=== PATIENT | female | born 1945 | race Caucasian/White ===

== ENCOUNTER 2017-02-03 16:59 | Emergency (ER) | payer MEDICARE ==
[2017-02-03] MEDS ORDERED: IBUPROFEN 400 MG TABLET PO ONE (17:26)
[2017-02-03] MEDS ORDERED: ACETAMINOPHEN 325 MG TABLET PO ONE (17:26)
[2017-02-03 17:58] LABS: BASOPHIL# 0.1 X 10^3uL (0.0-0.1); LYMPHOCYTES# 0.6 X 10^3uL (0.8-3.8)
[2017-02-03 18:03] LABS: ALBUMIN 3.4 g/dL (3.5-5.0); ALKALINE PHOSPHATASE 202 U/L (38-126); ALT 98 U/L (9-52); AST 136 U/L (14-36); BILIRUBIN, DIRECT 1.8 mg/dL (0.0-0.4); BILIRUBIN, TOTAL 3.3 mg/dL (0.2-1.3); BLOOD UREA NITROGEN 17 mg/dL (7-17); CALCIUM 8.2 mg/dL (8.4-10.2); CHLORIDE 101 mmol/L (98-107); CREATININE 0.9 mg/dL (0.5-1.0); EST GLOMERULAR FILTRATION RATE > 60 mL/min; GLUCOSE 122 mg/dL (70-100); LIPASE 37 U/L (23-300); SODIUM 129 mmol/L (137-145); TOTAL PROTEIN 6.5 g/dL (6.3-8.2)
[2017-02-03 18:23] LABS: BASOPHILS 0.6 % (0.0-2.0); EOSINOPHILS 0.1 % (0.0-6.0); HEMATOCRIT 44.5 % (36.0-48.0); HEMOGLOBIN 15.1 g/dL (12.0-16.0); LYMPHOCYTES 5.4 % (20.0-40.0); MEAN CELL VOLUME 90.3 fL (80.0-100.0); MEAN CORPUSCULAR HEMOGLOBIN 30.7 pg (29.0-35.0); MEAN PLATELET VOLUME 9.2 fL (7.4-10.4); MONOCYTES 6.7 % (2.0-10.0); MONOCYTES# 0.7 X 10^3uL (0.2-1.0); NEUTROPHILS# 9.3 X 10^3uL (2.6-6.7); PLATELET COUNT 143 X 10^3uL (130-440); RED BLOOD COUNT 4.93 X 10^6uL (4.20-6.10); WHITE BLOOD COUNT 10.7 X 10^3uL (3.9-10.7)
[2017-02-03 18:33] LABS: NEUTROPHILS 87.2 % (54.0-75.0); RED CELL DISTRIBUTION WIDTH 13.3 % (11.5-14.5)
[2017-02-03] MEDS ORDERED: HYDROCORTISONE 100 MG/2 ML VIAL ONE ×2 (18:59→19:00)
[2017-02-03 19:09] LABS: POTASSIUM 3.4 mmol/L (3.5-5.1)
[2017-02-03 19:26] LABS: CREATINE KINASE 64 U/L (30-135)
[2017-02-03 19:29] LABS: C-REACTIVE PROTEIN > 90.0 mg/L (<10.0)
[2017-02-03 21:21] LABS: URINE RBC NONE SEEN (0-5/hpf)
[2017-02-03 21:28] LABS: URINE APPEARANCE CLOUDY; URINE COLOR AMBER; URINE LEUKOCYTE ESTERASE TRACE (NEGATIVE); URINE NITRITE POSITIVE (NEGATIVE)
[2017-02-03 21:29] LABS: URINE BILIRUBIN 1.0 mg/100ml (2+) (NEGATIVE); URINE BLOOD TRACE (NEGATIVE); URINE GLUCOSE NORMAL (NEGATIVE); URINE KETONE 10mg/dL (1+) (NEGATIVE); URINE PH 5.5 (5-7); URINE PROTEIN 30mg/dL (1+) (NEG - TRACE); URINE UROBILINOGEN 1mg/dL (Normal) (NEG-1mg/dL)
[2017-02-03 21:47] LABS: URINE MUCUS UP TO 50%/lpf (Up to 25%)
[2017-02-03 21:49] LABS: URINE BACTERIA >50 ORGANISMS/hpf (<10/hpf)
--- NOTE | 2017-02-03 22:56 | ER PHYSICIAN DOCUMENTATION ---
Physician Documentation [facility] Name:Carin Smith Age:71 yrs Sex:Female :1945 Arrival Date:02/03/2017 Time:16:59 Bed1 Private MD:Lissa Mackey ED, John Disposition: 02/03/17 21:41 Transfer ordered to [facility]. Diagnosis are Urosepsis, Dehydration, Adrenal Insufficiency, Hypotension, Hyponatremia. - Reason for transfer: Specialty. - Accepting physician is Dr. Haynes. - Condition is Fair. - Problem is new. - Symptoms are unchanged. COBRA Form completed? Yes Transfer - Mode of Transportation Ambulance - Notes: For the weekend, up your dose of steroids to 30mg twice a day. Follow up with Dr. Mackey on Monday morning. HPI: 02/03 20:18 This 71 yrs old Female presents to ER with complaints of Fever. jm 20:18 This 71 yrs old Female presents to ER with complaints of Fever. jm 20:18 The patient reports fever, not measured (subjective). Onset: The symptom(s)/episode jm began/occurred today. Modifying factors: there are no obvious modifying factors. Associated signs and symptoms: Pertinent positives: arthralgias, backache. Severity of symptoms: in the emergency department the symptoms are unchanged. The patient has not experienced similar symptoms in the past. The patient has been recently seen by a physician: the patient's primary care provider, Dr. Mackey, who did a flu swab and it was negative. It was at the end of clinic, so she was sent to the ER for evaluation. Pt c/po mostly of back pain and fatigue. She denies cough or SOB. . Historical: - Allergies: Compazine; Gluten Protein; Dairy product; - Home Meds: 1. Synthroid Oral 2. Hydrocortisone Oral 3. budesonide oral 4. Acidophilus Oral 5. echinacea oral 6. boswellia 7. Imodium Oral 8. melatonin Oral 9. ubiquinol 10. cranberry 11. tylenol 12. Famotidine Oral 13. Tomeka Oral 14. potassium chloride 15. reclast 16. singular 17. estriol - PMHx: adrenal insufficency; HYPOTHYROIDISM; ischemic heart disease; OSTEOPOROSIS; FIBROMYALGIA; OSTEOARTHRITIS; colitis; SINUSITIS; GLAUCOMA; sleep disorder; SLEEP APNEA; PTSD; hypopotassemia; hyperlipidemia; adrenal insufficiency; autoimmune hypothyroidism; chronic lymphocytic thyroiditis; monika's thyroiditis; vaginitis; - PSHx: TUBAL LIGATION; section; Tonsillectomy; - Tetanus: unknown. - Ebola Screening: : Patient negative for fever greater than or equal to 101.5 degrees Fahrenheit, and additional compatible Ebola Virus Disease symptoms. Patient denies exposure to infectious person. Patient denies travel to an Ebola-affected area in the 21 days before illness onset. No symptoms or risks identified at this time. . - Immunization history: Pneumococcal vaccine is not up to date, Patient has never been vaccinated, Flu Vaccine None. - Social history: Smoking status: Patient states was never smoker of tobacco. Patient/guardian denies using alcohol, marijuana. ROS: 20:20 Constitutional: Positive for body aches, chills, fatigue, fever, malaise. jm 20:20 ENT: Negative for sinus congestion, sinus pain, sore throat. 20:20 Neck: Negative for stiffness. 20:20 Cardiovascular: Negative for chest pain. 20:20 Respiratory: Negative for cough, dyspnea on exertion, shortness of breath. 20:20 Abdomen/GI: Negative for abdominal pain, nausea, vomiting, diarrhea. 20:20 Back: Positive for pain at rest, pain with movement. 20:20 : Positive for foul smelling urine. 20:20 Skin: Negative for rash. 20:20 Neuro: Positive for weakness, Negative for dizziness, headache. 20:20 Psych: Negative for anxiety, depression. 20:20 Endocrine: Negative for weight gain, weight loss. Exam: 20:21 Constitutional: The patient appears alert, awake, obese. jm 20:21 Head/face: Exam is negative for swelling, tenderness. 20:21 ENT: Mouth: Oral mucosa: dry, Posterior pharynx: is normal. 20:21 Neck: Thyroid: appears normal, Trachea: is midline with no obvious abnormalities. 20:21 Cardiovascular: Rate: normal, Rhythm: regular. 20:21 Respiratory: Respirations: normal, Breath sounds: are normal. 20:21 Abdomen/GI: Bowel sounds: normal, Palpation: abdomen is soft and non-tender. 20:21 Back: CVA tenderness, that is mild, is noted bilaterally, vertebral tenderness, is not appreciated. 20:21 : CVA tenderness, that is mild, Bladder: tenderness, that is mild. 20:21 Musculoskeletal/extremity: DVT Exam: No signs of deep vein thrombosis. Calves: are non-tender, have equal circumference. 20:21 Skin: Appearance: Color: pink, Temperature: normal temperature. 20:21 Neuro: Mentation: is normal, Memory: is normal. 20:21 Psych: Behavior/mood is pleasant, cooperative, Affect is calm. Vital Signs: 17:10 BP 96 / 54; Pulse 77; Resp 22; Temp 99.1; Pulse Ox 82% on R/A; Weight 72.57 kg; Height sj 5 ft. 0 in. (152.40 cm); Pain 7/10; 17:40 BP 117 / 55; Pulse 74; Pulse Ox 91% on 2 lpm NC; sj 18:45 BP 87 / 46; Pulse 68; Pulse Ox 94% on 2 lpm NC; sj 19:52 BP 93 / 46; Pulse 67; Pulse Ox 93% on 2 lpm NC; sj 20:36 BP 101 / 46; Pulse 68; Temp 97.8(O); Pulse Ox 85% on R/A; Pain 5/10; sj 17:10 Body Mass Index 31.25 (72.57 kg, 152.40 cm) sj MDM: 17:33 Patient medically screened. cd 20:22 Differential diagnosis: viral Infection, bacterial infection, URI, UTI. Data reviewed: jm vital signs, nurses notes, old medical records, lab test result(s), radiologic studies, and as a result, I will admit patient. Counseling: I had a detailed discussion with the patient and/or guardian regarding: the historical points, exam findings, and any diagnostic results supporting the discharge/admit diagnosis, lab results, radiology results, the need for further work-up and treatment in the hospital. Medication response: The patient's symptoms have resolved. Physician consultation: Louie Stout MD regarding admission, and will see patient tomorrow. Admission orders: after a detailed discussion of the patient's condition and case, the admit orders are written by me. 20:44 ED course: Pt w nitrite + UTI. Pt given Rocephin. BP's have been low, but I feel this jm is due to her renal insufficiency under stress. Hydrocortisone was given for this. Pt also hypoxic, but this has occurred in the past per Dr's notes. Dr. Meza did a bedside US of the RUQ after her LFTs were bumped. This showed stones, but she has no RUQ pain. Will admit for improved BP's and urosepsis. . 22:00 ED course: Dr. Stout has seen and evaluated pt. He spoke w pt's PCP, Dr. Narendra tierney and they agree that the elevated LFTs w a positive bedside US that showed stones, does not sit well with them. Our surgical coverage is 2 hours away over this weekend, so they decided that I should make the call to transfer the pt. Dr. Haynes at [facility] gladly accepted the pt. . 02/03 18:21 Order name: BASIC METABOLIC PANEL; Complete Time: 19:17 EDMS 02/03 18:24 Interpretation: Normal Except: SODIUM 129; POTASSIUM 3.4; CALCIUM 8.2; Hypokalemia, cd Hyponatremia, Hypocalcemia. 02/03 18:21 Order name: HEPATIC PANEL; Complete Time: 19:17 EDMS 02/03 18:24 Interpretation: Abnormal: ALT 98; ALKALINE PHOSPHATASE 202; AST 136; BILIRUBIN, TOTAL cd 3.3; BILIRUBIN, DIRECT 1.8. 02/03 18:21 Order name: LIPASE; Complete Time: 19:17 EDMS 02/03 18:24 Interpretation: Normal. 02/03 18:30 Order name: LACTATE; Complete Time: 18:35 EDMS 02/03 18:34 Interpretation: Normal. 02/03 18:32 Order name: INFLUENZA A/B; Complete Time: 18:35 EDMS 02/03 18:34 Interpretation: Normal. 02/03 18:34 Order name: CBC AUTO DIF, MDIF/RMOR IF IND; Complete Time: 19:17 EDMS 02/03 19:30 Order name: CREATINE KINASE; Complete Time: 20:44 EDMS 02/03 19:30 Order name: C-REACTIVE PROTEIN; Complete Time: 20:44 EDMS 02/03 21:52 Order name: UA W/ MICRO -CULTURE IF IND; Complete Time: 21:55 EDMS 02/03 17:36 Order name: I & O; Complete Time: 21:36 02/03 17:36 Order name: NPO; Complete Time: 21:36 02/03 17:36 Order name: Oxygen; Complete Time: 21:36 cd 02/03 17:36 Order name: Place Patient On Monitor; Complete Time: 21:36 cd 02/03 17:36 Order name: Pulse Ox Continuous; Complete Time: 21:36 cd 02/03 17:36 Order name: Accucheck; Complete Time: 21:36 cd 02/03 17:38 Order name: Iv Saline Lock; Complete Time: 21:36 cd Dispensed Medications: 17:20 Drug: Acetaminophen 650 mg; Route: PO; sj 21:36 Follow up: Response: Marked relief of symptoms sj 17:20 Drug: Ibuprofen 400 mg; Route: PO; sj 21:37 Follow up: Response: Marked relief of symptoms sj 17:30 Drug: NS 0.9% 1000 ml; Route: IV; Rate: bolus; Site: right forearm; sj 21:36 Follow up: IV Status: Completed infusion; IV Intake: 1000ml sj 17:40 Drug: NS 0.9% 1000 ml; Route: IV; Rate: 250 ml/hr; Site: right forearm; sj 21:34 Follow up: Urine output 250 ml; Response: Blood pressure is elevated sj 18:54 CANCELLED (Physician Discretion): Zosyn 3.375 grams IVPB once cd 19:40 Drug: NS 0.9% 500 ml; Route: IV; Rate: bolus; Site: right forearm; sj 21:37 Follow up: IV Status: Completed infusion; IV Intake: 1000ml 20:20 Drug: Rocephin 1 grams; Route: IVPB; Site: right forearm; sj 21:35 Follow up: Response: No adverse reaction sj 21:46 Follow up: IV Status: Completed infusion; IV Intake: 100ml Point of Care Testing: Urine Dip: 21:18 pH: 5.5; ; Specific [place]: 1.025; Ketones: Trace; Glucose: Negative; Protein: sj Positive (++); Leukocytes: Trace; Nitrite: Positive (++) ; Blood: Hemolyzed Trace; Bilirubin: Moderate (++) ; Urobilinogen: Moderate Signatures: Juan Meza MD MD cd Meyer, John, MD MD jm Janzen, Heather Rader, Magi guadalupe
--- NOTE | 2017-02-03 22:56 | ER NURSING DOCUMENTATION ---
Nurse's Notes [facility] Name:Carin Smith Age:71 yrs Sex:Female :1945 Arrival Date:02/03/2017 Time:16:59 Bed1 Private MD:Lissa Mackey Diagnosis:Urosepsis;Dehydration;Adrenal Insufficiency;Hypotension;Hyponatremia Presentation: 02/03 17:03 Acuity: MARICRUZ 3 tg 20:48 Presenting complaint: Patient states: fever and low back ache today. Pain is mostly in sj buttocks. Seen in Dr. Mackey's office and given tylenol. Transition of care: patient was received from another setting of care (ambulatory primary care physician practice). Notified ED Physician of patient's arrival and CC Dr. Meza notified. 20:48 Method Of Arrival: Private Vehicle Triage Assessment: 21:07 General: Appears ill, Behavior is cooperative, drowsy, flat. Pain: Complains of pain in sj bilat upper buttocks Pain does not radiate. Neuro: Level of Consciousness is awake, lethargic, obeys commands, Oriented to person, place, time, event. Cardiovascular: Capillary refill < 3 seconds Heart tones S1 S2 Respiratory: Respiratory effort is even, unlabored, relaxed. : Denies burning with urination, urinary frequency. Historical: - Allergies: Compazine; Gluten Protein; Dairy product; - Home Meds: 1. Synthroid Oral 2. Hydrocortisone Oral 3. budesonide oral 4. Acidophilus Oral 5. echinacea oral 6. boswellia 7. Imodium Oral 8. melatonin Oral 9. ubiquinol 10. cranberry 11. tylenol 12. Famotidine Oral 13. Tomeka Oral 14. potassium chloride 15. reclast 16. singular 17. estriol - PMHx: adrenal insufficency; HYPOTHYROIDISM; ischemic heart disease; OSTEOPOROSIS; FIBROMYALGIA; OSTEOARTHRITIS; colitis; SINUSITIS; GLAUCOMA; sleep disorder; SLEEP APNEA; PTSD; hypopotassemia; hyperlipidemia; adrenal insufficiency; autoimmune hypothyroidism; chronic lymphocytic thyroiditis; monika's thyroiditis; vaginitis; - PSHx: TUBAL LIGATION; section; Tonsillectomy; - Tetanus: unknown. - Ebola Screening: : Patient negative for fever greater than or equal to 101.5 degrees Fahrenheit, and additional compatible Ebola Virus Disease symptoms. Patient denies exposure to infectious person. Patient denies travel to an Ebola-affected area in the 21 days before illness onset. No symptoms or risks identified at this time. . - Immunization history: Pneumococcal vaccine is not up to date, Patient has never been vaccinated, Flu Vaccine None. - Social history: Smoking status: Patient states was never smoker of tobacco. Patient/guardian denies using alcohol, marijuana. Screenin:20 Infectious Disease Risk None. Abuse screen: Denies threats or abuse. Denies injuries sj from another. Nutritional screening: No deficits noted. Assessment: 21:19 See Triage Assessment done by same RN. sj 22:26 Respiratory: Breath sounds are clear. Vital Signs: 17:10 BP 96 / 54; Pulse 77; Resp 22; Temp 99.1; Pulse Ox 82% on R/A; Weight 72.57 kg; Height sj 5 ft. 0 in. (152.40 cm); Pain 7/10; 17:40 BP 117 / 55; Pulse 74; Pulse Ox 91% on 2 lpm NC; sj 18:45 BP 87 / 46; Pulse 68; Pulse Ox 94% on 2 lpm NC; sj 19:52 BP 93 / 46; Pulse 67; Pulse Ox 93% on 2 lpm NC; sj 20:36 BP 101 / 46; Pulse 68; Temp 97.8(O); Pulse Ox 85% on R/A; Pain 5/10; sj 17:10 Body Mass Index 31.25 (72.57 kg, 152.40 cm) ED Course: 17:00 Patient arrived in ED. ama 17:01 Lissa Mackey MD is Private Physician. ama 17:04 Triage completed. tg 17:33 Juan Meza MD is Attending Physician. cd 17:45 Port Xray Completed. hz 18:28 Magi Rader is Primary Nurse. lb 18:30 Labs drawn. (by ED staff). Urine collected. Clean catch specimen. Flu Swab done. sj 18:43 Lissa Mackey MD is Referral Physician. cd 19:37 Lissa Mackey MD is Referral Physician. jm 20:17 Attending Physician role handed off by Juan Meza MD jm 20:17 Dominick Simon MD is Attending Physician. jm 20:47 Louie Stout MD is Admitting Physician. jm 21:20 Inserted peripheral IV: 20 gauge in right forearm and blood collected. Oxygen Oxygen sj administration via nasal cannula @ 2L/min. 21:20 Valuables Given to family. Patient has correct armband on for positive identification. sj Bed in low position. Call light in reach. Side rails up X2. Lights dimmed. Warm blanket given. 21:43 First set of blood cultures drawn Second set of blood cultures drawn. sj Administered Medications: 17:20 Drug: Acetaminophen 650 mg; Route: PO; sj 21:36 Follow up: Response: Marked relief of symptoms sj 17:20 Drug: Ibuprofen 400 mg; Route: PO; sj 21:37 Follow up: Response: Marked relief of symptoms sj 17:30 Drug: NS 0.9% 1000 ml; Route: IV; Rate: bolus; Site: right forearm; sj 21:36 Follow up: IV Status: Completed infusion; IV Intake: 1000ml sj 17:40 Drug: NS 0.9% 1000 ml; Route: IV; Rate: 250 ml/hr; Site: right forearm; sj 21:34 Follow up: Urine output 250 ml; Response: Blood pressure is elevated sj 18:54 CANCELLED (Physician Discretion): Zosyn 3.375 grams IVPB once cd 19:40 Drug: NS 0.9% 500 ml; Route: IV; Rate: bolus; Site: right forearm; sj 21:37 Follow up: IV Status: Completed infusion; IV Intake: 1000ml 20:20 Drug: Rocephin 1 grams; Route: IVPB; Site: right forearm; sj 21:35 Follow up: Response: No adverse reaction sj 21:46 Follow up: IV Status: Completed infusion; IV Intake: 100ml sj Point of Care Testing: Urine Dip: 21:18 pH: 5.5; ; Specific [place]: 1.025; Ketones: Trace; Glucose: Negative; Protein: sj Positive (++); Leukocytes: Trace; Nitrite: Positive (++) ; Blood: Hemolyzed Trace; Bilirubin: Moderate (++) ; Urobilinogen: Moderate Intake: 21:36 IV: 1000ml; Total: 1000ml. sj 21:37 IV: 1000ml; Total: 2000ml. sj 21:45 PO: 400ml; IV: 2100ml; Total: 4500ml. sj 21:46 IV: 100ml; Total: 4600ml. sj Output: 21:34 Urine: 250ml; Total: 250ml. sj 21:45 Urine: 250ml (Voided); Total: 500ml. Outcome: 18:44 Discharge ordered by . kehinde 19:37 Discharge ordered by . kelsy 20:47 Decision to Admit by Provider. kelsy 21:41 ER care complete, transfer ordered by . kelsy 22:22 Transferred: Patient will be transferred to: [facility]. Facility sj Acceptance Time: February 03, 2017 at 21:55 Patient will be transported by: [facility] [place] [facility] ground. Report called to: Yaya RN Nurse and Physician Charting and Notes were sent to Accepting Facility. All tests and/or procedures with results, if applicable, were sent to accepting facility. 22:22 Condition: stable 22:22 Instructed on need for transfer 22:24 Transferred: sj 22:25 Transferred: Patient's face sheet was faxed to accepting facility. Face Sheet included patient's name, address, age, gender, contact information and insurance information. 22:55 Patient left the ED. lb Signatures: Jasen Khan RN RN Juan Busby MD MD cd Meyer, John, MD MD jm Averdick, Andrew, Taras Reg carol Hutton, Magi Mark Heather
--- NOTE | 2017-02-06 14:28 | RADIOLOGY REPORT ---
A limited single portable view of the chest is compared with prior film dated . There has been no change. The heart, vessels and lungs are stable and unremarkable. No infiltrate, fluid or pneumothorax is seen. IMPRESSION: Stable, unremarkable limited single portable view of the chest. MTDD
== END 2017-02-03 22:56 | disposition short-term general hospital (02) ==
LOC: ER 16:59
DX: N39.0 Urinary tract infection, site not specified (principal); B96.20 Unspecified Escherichia coli [E. coli] as the cause of diseases classified elsewhere; E86.0 Dehydration; E27.49 Other adrenocortical insufficiency; I95.9 Hypotension, unspecified; E87.1 Hypo-osmolality and hyponatremia; R78.81 Bacteremia; B95.61 Methicillin susceptible Staphylococcus aureus infection as the cause of diseases classified elsewhere; R53.1 Weakness; M79.1 Myalgia; R53.83 Other fatigue; R79.89 Other specified abnormal findings of blood chemistry; Z79.899 Other long term (current) drug therapy; Z74.3 Need for continuous supervision
CPT/HCPCS: 71010; 80048; 80076; 81001; 82550; 83605; 83690; 85025; 86140; 87040; 87077; 87086; 87186; 87449; 96361; 96365; 99285; A0425; A0427

== ENCOUNTER 2017-03-07 14:44 | Emergency (ER) | payer MEDICARE ==
[2017-03-07 15:39] LABS: BASOPHILS 0.1 % (0.0-2.0); EOSINOPHILS 2.4 % (0.0-6.0); EOSINOPHILS# 0.2 X 10^3uL (0.0-0.4); HEMATOCRIT 42.6 % (36.0-48.0); HEMOGLOBIN 14.8 g/dL (12.0-16.0); LYMPHOCYTES 11.3 % (20.0-40.0); MEAN CELL VOLUME 89.8 fL (80.0-100.0); MEAN CORPUS. HGB CONCENTRATION 34.7 g/dL (32.0-36.0); MEAN CORPUSCULAR HEMOGLOBIN 31.1 pg (29.0-35.0); MEAN PLATELET VOLUME 8.8 fL (7.4-10.4); MONOCYTES 7.7 % (2.0-10.0); MONOCYTES# 0.7 X 10^3uL (0.2-1.0); NEUTROPHILS 78.5 % (54.0-75.0); NEUTROPHILS# 7.1 X 10^3uL (2.6-6.7); PLATELET COUNT 264 X 10^3uL (130-440); RED BLOOD COUNT 4.74 X 10^6uL (4.20-6.10); RED CELL DISTRIBUTION WIDTH 13.4 % (11.5-14.5)
[2017-03-07] MEDS ORDERED: MORPHINE SULFATE 2 MG/ML SYR ONE ×2 (15:47→16:29)
[2017-03-07 15:48] LABS: BLOOD UREA NITROGEN 19 mg/dL (7-17); C-REACTIVE PROTEIN 27.2 mg/L (<10.0); CALCIUM 9.1 mg/dL (8.4-10.2); CHLORIDE 97 mmol/L (98-107); CREATININE 0.8 mg/dL (0.5-1.0); EST GLOMERULAR FILTRATION RATE > 60 mL/min; GLUCOSE 97 mg/dL (70-100); SODIUM 133 mmol/L (137-145)
[2017-03-07] MEDS ORDERED: BACITRACIN 1 APP/PKT PKT TOPICAL ONE (16:01)
--- NOTE | 2017-03-07 17:34 | ER NURSING DOCUMENTATION ---
Nurse's Notes [facility] Name:Carin Smith Age:71 yrs Sex:Female :1945 Arrival Date:03/07/2017 Time:14:44 Bed4 Private MD:Lissa Mackey Diagnosis:Osteomyelitis Acute, Unspecified Site Presentation: 03/07 14:52 Acuity: MARICRUZ 2 ma 14:55 Presenting complaint: Patient states: Pt here for rule out Sepsis Hx of Staph infection ma to lumbar spine. Transition of care: Home. 14:55 Method Of Arrival: Private Vehicle ma Triage Assessment: 15:19 General: Appears uncomfortable, Behavior is anxious. Pain: Complains of pain in lumbar lp area, sacrum and left low back. EENT: Neuro: No deficits noted. Cardiovascular: No deficits noted. Respiratory: No deficits noted. GI: No deficits noted. : No deficits noted. Derm: No deficits noted. Musculoskeletal: Circulation, motion, and sensation intact Capillary refill Range of motion limited in left hip. Historical: - Allergies: Compazine; Penicillins; - PMHx: Hyponatremia (February 03, 2017); Hypotension (February 03, 2017); Adrenal Insufficiency (February 03, 2017); Dehydration (February 03, 2017); Urosepsis (February 03, 2017); - PSHx: TUBAL LIGATION; section; TONSILLECTOMY; - Tetanus: unknown. - Ebola Screening: : No symptoms or risks identified at this time. . - Immunization history: Unable to Obtain. - Social history: Smoking status: Patient states was never smoker of tobacco. Screenin:21 Infectious Disease Risk None. Abuse screen: Denies threats or abuse. Denies injuries lp from another. Nutritional screening: No deficits noted. Assessment: 15:21 See Triage Assessment done by same RN. lp Vital Signs: 14:50 BP 138 / 62; Pulse 75; Resp 16; Pulse Ox 93% on R/A; lp 15:20 BP 119 / 62; Pulse 70; Resp 16; Temp 98.5(O); Pulse Ox 98% on R/A; Weight 84.82 kg; lp Height 60 in. (152.40 cm); Pain 8/10; 16:00 BP 119 / 57; Pulse 71; Resp 16; Pulse Ox 95% on R/A; lp 17:02 BP 114 / 63; Pulse 74; Resp 16; Pulse Ox 92% on R/A; lp 17:15 Pain 2/10; lp 15:20 Body Mass Index 36.52 (84.82 kg, 152.40 cm) lp ED Course: 14:45 Patient arrived in ED. ds 14:45 Lissa Mackey MD is Private Physician. ds 14:52 Triage completed. evelina 15:15 Dominick Simon MD is Attending Physician. kelsy 15:15 Inserted peripheral IV: 20 gauge in right antecubital area. lp 15:18 Roshni Alejandre, RN is Primary Nurse. lp 15:21 Valuables Remains with patient Patient has correct armband on for positive lp identification. Placed in gown. Bed in low position. Call light in reach. 15:[address] Simon notified. lp 15:53 Dressings: Bacitracin and gauze with kerlix to R FA skin tear. lp Administered Medications: 15:42 Drug: morphine 2 mg; Route: IVP; Infused Over: 2 mins; Site: right antecubital; lp 16:25 Follow up: Response: Pain is unchanged, physician notified lp 15:53 Drug: Bacitracin Ointment (500 unit/g) 1 application; Route: Topical; Site: right lp forearm; 16:29 Follow up: Response: No adverse reaction; No change in condition lp 16:26 Drug: morphine 2 mg; Route: IVP; Infused Over: 2 mins; Site: right antecubital; lp 17:15 Follow up: Response: Pain is decreased lp Outcome: 16:57 Discharge ordered by . 16:58 Discharged to home ambulatory. lp 16:58 Condition: unchanged 16:58 Instructed on discharge instructions, follow up and referral plans. 17:34 Patient left the ED. lp Signatures: Emelyn Bauer RN RN ma Pavlish, Lena, JUSTIN ANDERSON lp Srot, Skye, Reg Reg Dominick Soni MD MD jm
--- NOTE | 2017-03-07 17:35 | ER PHYSICIAN DOCUMENTATION ---
Physician Documentation [facility] Name:Carin Smith Age:71 yrs Sex:Female :1945 Arrival Date:03/07/2017 Time:14:44 Bed4 Private MD:Lissa Mackey ED, John Disposition: 03/07/17 16:57 Discharged to Home/Self Care. Impression: Osteomyelitis Acute, Unspecified Site. - Condition is Good. - Prescriptions for oxycodone 5 mg Oral tablet - take 0.5 tablet by ORAL route every 2 hours; 20 tablet. - Medical Reconciliation form form. - Follow up: Private Physician; When: ; Reason: Continuance of care. - Problem is new. - Symptoms have improved. HPI: 03/07 16:01 This 71 yrs old Female presents to ER via Private Vehicle with complaints of jm Pain. 16:01 The patient presents with pain that is chronic. The symptoms are located in the low jm back. Onset: The symptoms/episode began/occurred 3 day(s) ago. The pain radiates down the patient's left lower extremity. Associated signs and symptoms: Pertinent positives: weakness, malaise and difficulty walking , Pertinent negatives: urinary retention. The problem was sustained discitis or vertebral osteomyelitis. . Modifying factors: the patient symptoms are aggravated by bending, movement. Severity of symptoms: in the emergency department the symptoms are unchanged. The patient has experienced a previous episode. The patient has been recently seen by a physician: Dr. Dr. Thomas of ID. . Pt here to get MRI. Pt was sent in by her ID doctor due to thought that her infection is getting worse. Pt is currently on week 3 of [facility] for this osteomyelitis. Pt called to tell her ID doctor, Dr. Thomas, she was doing worse. He recommended that she come into get an MRI. She wanted to do this as an outpt, but here was no order. She waited until now. Pt can barely walk or do any ADLs. . Historical: - Allergies: Compazine; Penicillins; - PMHx: Hyponatremia (February 03, 2017); Hypotension (February 03, 2017); Adrenal Insufficiency (February 03, 2017); Dehydration (February 03, 2017); Urosepsis (February 03, 2017); - PSHx: TUBAL LIGATION; section; TONSILLECTOMY; - Tetanus: unknown. - Ebola Screening: : No symptoms or risks identified at this time. . - Immunization history: Unable to Obtain. - Social history: Smoking status: Patient states was never smoker of tobacco. ROS: 16:17 Constitutional: Negative for fever. jm 16:17 ENT: Negative for 16:19 Neck: Negative for stiffness, swelling. jm 16:19 Cardiovascular: Negative for chest pain, palpitations. 16:19 Respiratory: Negative for cough, shortness of breath. 16:19 Abdomen/GI: Negative for abdominal pain, nausea, vomiting, diarrhea. 16:19 Back: Positive for pain with movement, radiated pain. 16:19 : Negative for difficulty urinating, bladder incontinence. 17:06 MS/extremity: Positive for paresthesias. 17:06 Neuro: Positive for numbness, tingling, weakness. 17:06 Psych: Negative for insomnia, suicidal ideation. 17:06 All other systems are negative. Exam: 17:06 Constitutional: The patient appears in no acute distress, alert, awake. 17:06 Eyes: Periorbital structures: appear normal, Extraocular movements: intact throughout. 17:06 ENT: Nose: is normal, Mouth: is normal. 17:06 Neck: Thyroid: appears normal, Trachea: is midline with no obvious abnormalities. 17:06 Cardiovascular: Rate: normal, Rhythm: regular. 17:06 Respiratory: Respirations: normal, Breath sounds: are normal. 17:06 Abdomen/GI: Bowel sounds: normal, Palpation: abdomen is soft and non-tender. 17:06 Back: CVA tenderness, is absent, vertebral tenderness, is not appreciated. 17:06 : CVA tenderness, is absent, Bladder: is normal. 17:06 Musculoskeletal/extremity: Pulses: the left leg Tingling of extremity. decreased sensation. 17:06 Neuro: Motor: strength is 5/5 in the right leg and left leg, Sensation: tingling, that is moderate, of the left leg. 17:06 Psych: Behavior/mood is pleasant, cooperative, Affect is calm. Vital Signs: 14:50 BP 138 / 62; Pulse 75; Resp 16; Pulse Ox 93% on R/A; lp 15:20 BP 119 / 62; Pulse 70; Resp 16; Temp 98.5(O); Pulse Ox 98% on R/A; Weight 84.82 kg; lp Height 60 in. (152.40 cm); Pain 8/10; 16:00 BP 119 / 57; Pulse 71; Resp 16; Pulse Ox 95% on R/A; lp 17:02 BP 114 / 63; Pulse 74; Resp 16; Pulse Ox 92% on R/A; lp 17:15 Pain 2/10; lp 15:20 Body Mass Index 36.52 (84.82 kg, 152.40 cm) lp MDM: 15:15 Patient medically screened. 17:09 Differential diagnosis: Osteomyelitis. Data reviewed: vital signs, nurses notes, old medical records, lab test result(s), and as a result, I will initiate a consult, from a ID. Counseling: I had a detailed discussion with the patient and/or guardian regarding: the historical points, exam findings, and any diagnostic results supporting the discharge/admit diagnosis, lab results, the need for further work-up and treatment in the hospital, risk of leaving the Emergency Department, without knowing results of the studies ordered or initiated. Medication response: The patient's symptoms have improved, Physician consultation: Dr. Garcia regarding patient's condition, would like further tests performed, MRI. ED course: Pt waited too long to come to the ER for her MRI. There is a patient on the table as of 3:30 w an 75 minute study occurring. This pt needs an MRI w and w/o contrast which will take 45 minutes and our it help desk technician needs to go home at 5pm to pick up attendant her grandchildren. Pt was offered transfer to other hospital for this emergency. She refused. She can barely walk and is a fall risk, so she was offered admission here for pain control w MRI in the AM. She refused, stating that she has a that is much sicker than she is. She also is not a fan of our beds and would rather sleep on her sleep number bed. Pt states she will try tomorrow to wait for the preauthorizations from insurance, but she may have to come back to the ER. Certainly this represents an emergency w new sensory deficits in her leg. . ED course: I cannot convince her to stay and her reasons are sound. I will relay her medical info to Dr. Medina, who is the ER doctor tomorrow. . 03/07 15:42 Order name: CBC AUTO DIF, MDIF/RMOR IF IND; Complete Time: 15:51 EDMS 03/07 15:50 Order name: BASIC METABOLIC PANEL; Complete Time: 15:51 EDMS 03/07 15:50 Order name: C-REACTIVE PROTEIN; Complete Time: 15:51 EDMS Dispensed Medications: 15:42 Drug: morphine 2 mg; Route: IVP; Infused Over: 2 mins; Site: right antecubital; lp 16:25 Follow up: Response: Pain is unchanged, physician notified lp 15:53 Drug: Bacitracin Ointment (500 unit/g) 1 application; Route: Topical; Site: right lp forearm; 16:29 Follow up: Response: No adverse reaction; No change in condition lp 16:26 Drug: morphine 2 mg; Route: IVP; Infused Over: 2 mins; Site: right antecubital; lp 17:15 Follow up: Response: Pain is decreased lp Signatures: Emelyn Bauer RN RN ma Pavlish, Lena, RN RN lp Meyer, John, MD MD
== END 2017-03-07 17:34 | disposition home or self-care (01) ==
LOC: ER 14:44
DX: M86.18 Other acute osteomyelitis, other site (principal); R20.2 Paresthesia of skin; R53.1 Weakness
CPT/HCPCS: 80048; 85025; 86140; 87040; 96374; 96376; 99283; 99285; J2270

== ENCOUNTER 2017-03-08 08:40 | Emergency (ER) | payer MEDICARE ==
--- NOTE | 2017-03-08 10:42 | MRI REPORT ---
HISTORY: Low back pain with left lower extremity radiculopathy requiring evaluation for infection. COMPARISON: None TECHNIQUE: Multisequence, multiplanar MR images of the lumbar spine before and after the intravenous administrat ion of 15 cc Magnevist contrast. FINDINGS: There is moderate accentuation of the normal lumbar lordosis. There is 4 mm L2-L3 retrolisthesis. The re is no acute vertebral body fracture. There is severe L2-L3, moderate-severe L3-L4 and moderate-sev ere L4-L5 degenerative disc disease along with mild L5-S1 disc desiccation. There is an annular fissu re in the posterior L5-S1 disc. There is enhancing edema throughout the L4 and L5 vertebral bodies. T here is fluid in the L4-L5 intervertebral disc. There is mild enhancement in the posterior L4-L5 inte rvertebral disc. There is edema in the surrounding soft tissues, more pronounced on the left, without definitive abscess. The conus medullaris is normal in position, terminating at the L2 level. T12-L1 and L1-L2: There is minimal bilateral facet arthropathy at both these levels. L2-L3: There is 4 mm retrolisthesis, mild diffuse disc bulging, thickening of ligamentum flavum and m ild bilateral facet arthropathy resulting in mild central canal narrowing and mild bilateral neural f oraminal narrowing. L3-L4: There is diffuse disc bulging, thickening of ligamentum flavum and moderate right and mild lef t facet arthropathy resulting in severe central canal stenosis and mild bilateral neural foraminal na rrowing. L4-L5: There is diffuse disc bulging, thickening of ligamentum flavum and moderate bilateral facet ar thropathy resulting in moderate-severe central canal stenosis and moderate bilateral neural foraminal narrowing including abutment of the bilateral exiting L4 nerve roots. L5-S1: There is diffuse disc bulging, thickening of ligamentum flavum and mild-moderate bilateral fac et arthropathy resulting in mild-moderate bilateral neural foraminal narrowing including slight abutm ent of the bilateral exiting L5 nerve roots, more pronounced on the left. IMPRESSION: 1. L4-L5 discitis/osteomyelitis without obvious abscess. 2. Multilevel severe degenerative disc disease, disc bulging, severe L3-L4 and moderate-severe L4-L5 central canal stenosis and abutment of the exiting left L4 nerve root. Final Electronic Signature: This report was electronically signed by Milton Solis MD on 017 10:40 AM. law /
--- NOTE | 2017-03-08 11:43 | ER PHYSICIAN DOCUMENTATION ---
Physician Documentation [facility] Name:Carin Smith Age:71 yrs Sex:Female :1945 Arrival Date:03/08/2017 Time:08:40 Bed1 Private MD:Lissa Mackey ED, Tom Disposition: 03/08 16:28 Chart complete. tl1 Disposition: 03/08/17 11:19 Discharged to Home/Self Care. Impression: Osteomyelitis. - Condition is Good. - Medical Reconciliation form form. - Follow up: Private Physician; When: Tomorrow; Reason: Recheck today's complaints. - Problem is new. - Symptoms have improved. - Notes: WE CANNOT SAY, NOW, IF YOUR OSTEOMYELITIS HAS CHANGED RADIOGRAPHICALLY. MAKE SURE YOU TAKE YOUR MRI DISC AND THE REPORT TO YOUR APPOINTMENT WITH DR SARAH. RETURN HERE FOR HIGH FEVER OR IF WORSE IN ANY WAY. HPI: 09:00 This 71 yrs old Female presents to ER via Private Vehicle with complaints of tl1 Back Pain. 09:00 The patient presents with pain that is acute. SHE was here yesterday in the ED and was tl1 unable to get an MRI for her worsening low back pain related to bacterial discitis (MSSA). She did not want to be admitted and returned this AM for a Lumbar MRI w/ and w/o contrast. See Dr Simon's note from yesterday for further details.. Historical: - Allergies: Compazine; PENICILLINS; - Home Meds: 1. pt staes they are in [facility] but that she does not know them. - PSHx: TUBAL LIGATION; section; TONSILLECTOMY; - Tetanus: unknown will f/u with PCP. - Ebola Screening: : Patient denies exposure to infectious person. Patient denies travel to an Ebola-affected area in the 21 days before illness onset. . - Immunization history: Pneumococcal vaccine status is unknown. - Social history: Smoking status: Patient states was never smoker of tobacco. Patient/guardian denies using alcohol, marijuana. ROS: 09:27 Back: Positive for pain at rest, pain with movement, of the lumbar area. tl1 09:28 All other systems are negative. tl1 Exam: 09:30 Constitutional: The patient appears alert, awake, well developed, well hydrated, well tl1 groomed, well nourished, uncomfortable. 09:30 Head/face: Exam is negative for acute changes. 09:30 Neck: ROM/movement: is normal. 09:30 Cardiovascular: Rate: normal. 09:30 Respiratory: Respirations: normal. 09:30 Back: pain, that is moderate, of the lumbar area, ROM is not tested. 09:30 Neuro: Sensation: not tested, Gait: not tested. Vital Signs: 07:40 BP 110 / 63; Pulse 69; Resp 18; Temp 97.9; Pulse Ox 92% on R/A; Pain 6/10; st MDM: 09:24 Patient medically screened. tl1 09:30 Differential diagnosis: Osteoarthritis osteomyelitis, discitis, abscess, fracture, tl1 spinal stenosis. Data reviewed: vital signs, nurses notes, old medical records, radiologic studies, MRI, and as a result, I will discharge patient. Counseling: I had a detailed discussion with the patient and/or guardian regarding: the historical points, exam findings, and any diagnostic results supporting the discharge/admit diagnosis, radiology results, the need for outpatient follow up, to return to the emergency department if symptoms worsen or persist or if there are any questions or concerns that arise at home. Special discussion: the parent(s) request She has an appointment with Dr Sarah (ID) tomorrow. She should take a disc with the MRI and the MRI report with her to that appointment. Return here for any worsening in the interim.. 03/08 10:44 Order name: LUMBAR SPINE W/WO [id number]; Complete Time: 16:23 EDVT 03/08 16:23 Interpretation: Abnormal: L4-5 Discitis/osteomyelitis, w/o abscess. No old studies to tl1 compare, though she had an MRI at [facility] about 3 weeks ago. Dispensed Medications: No medications were administered Signatures: Carole Dobson, RN Boyd Larose MD MD tl1
--- NOTE | 2017-03-08 11:43 | ER NURSING DOCUMENTATION ---
Nurse's Notes [facility] Name:Carin Smith Age:71 yrs Sex:Female :1945 Arrival Date:03/08/2017 Time:08:40 Bed1 Private MD:Lissa Mackey Diagnosis:Osteomyelitis Presentation: 03/08 08:47 Presenting complaint: Patient states: pt is here for an MRI that she was unable to get st yesterday for continued troubles with her back infection and pain and weakness in the left leg. 08:47 Acuity: MARICRUZ 3 st 09:00 Transition of care: Home. st 09:00 Method Of Arrival: Private Vehicle st Triage Assessment: 08:40 General: Appears uncomfortable, Behavior is cooperative. Pain: Complains of pain in st back and left leg Pain currently is 6 out of 10 on a pain scale. Neuro: pt has troubles lifting the left leg. . Reports weakness in left leg. Neuro: Level of Consciousness is awake, alert, Oriented to person, place, time, event, Pharmacovigilance Scientist are equal bilaterally. Cardiovascular: No deficits noted. Respiratory: No deficits noted. GI: No deficits noted. Musculoskeletal:. Musculoskeletal:. Historical: - Allergies: Compazine; PENICILLINS; - Home Meds: 1. [facility] [place] [facility] but that she does not know them. - PSHx: TUBAL LIGATION; section; TONSILLECTOMY; - Tetanus: unknown will f/u with PCP. - Ebola Screening: : Patient denies exposure to infectious person. Patient denies travel to an Ebola-affected area in the 21 days before illness onset. . - Immunization history: Pneumococcal vaccine status is unknown. - Social history: Smoking status: Patient states was never smoker of tobacco. Patient/guardian denies using alcohol, marijuana. Screenin:29 Infectious Disease Risk None. Abuse screen: Denies threats or abuse. Denies injuries st from another. pt feels safe at home. Nutritional screening: No deficits noted. Vital Signs: 07:40 BP 110 / 63; Pulse 69; Resp 18; Temp 97.9; Pulse Ox 92% on R/A; Pain 6/10; st ED Course: 08:41 Patient arrived in ED. ds 08:41 Lissa Mackey MD is Private Physician. ds 08:47 Twombly, Summer, RN is Primary Nurse. st 08:[address] 08:58 Patient moved to MRI. ms 09:24 Boyd Medina MD is Attending Physician. tl1 09:29 Accessed pick line assessed to see if it is compatable with contrast. It is.. st 09:29 Valuables Remains with patient Patient has correct armband on for positive st identification. Administered Medications: No medications were administered Outcome: 11:19 Discharge ordered by MD. tl1 11:41 Discharged to home via wheelchair. st 11:41 Condition: stable 11:41 Discharge instructions given to patient, Instructed on discharge instructions, follow up and referral plans. 11:42 Patient [address] the ED. st 03/09 10:56 Discharge F/U Call: Spoke with: patient. Are you having any pain? yes. How are you nf managing your pain? Patient is taking medication: oxycodone Other intervention(s) for pain being used: states she is not having fevers Did your discharge instructions answer all of your questions? yes Have you made a f/u appointment? yes Overall Care on a scale of 1-10 with 10 being the best care, you rate our care as: the rating of 10. Further F/U necessary? None needed Signatures: Carole Dobson RN RN st Friel, Nicole, RN RN nf Srot, Deidra, Reg Reg ds Strickland, Mary ms Leigh, Tom, MD MD tl1
== END 2017-03-08 11:42 | disposition home or self-care (01) ==
LOC: ER 08:40
DX: M86.18 Other acute osteomyelitis, other site (principal); M54.5 Low back pain; M79.605 Pain in left leg; R53.1 Weakness
CPT/HCPCS: 72158; 99282; 99284

== ENCOUNTER 2017-04-03 20:04 | Emergency (ER) | payer MEDICARE ==
[2017-04-03 21:02] LABS: URINE MUCUS NONE SEEN (Up to 25%); URINE WBC NONE SEEN (0-4/hpf)
[2017-04-03 21:07] LABS: URINE SQUAMOUS EPITHELIAL CELL 0-5/hpf (<= 15/hpf); URINE TRANSITIONAL EPI CELL 0-5/hpf (<=5/hpf)
--- NOTE | 2017-04-03 21:10 | ER PHYSICIAN DOCUMENTATION ---
Physician Documentation [facility] Name:Carin Smith Age:71 yrs Sex:Female :1945 Arrival Date:04/03/2017 Time:20:04 Bed3 Private MD:Lissa Mackey ED, Chris Disposition: 04/03/17 20:57 Transfer ordered to [facility]. Diagnosis is Osteomyelitis - of Spine. - Reason for transfer: Higher level of care. - Accepting physician is Marlene Dacosta MD, [facility] Hospitalist. - Condition is Fair. - Problem is an acute exacerbation. - Symptoms are unchanged. COBRA Form completed? Yes Transfer - Mode of Transportation Ambulance HPI: 04/03 20:04 This 71 yrs old Female presents to ER via Private Vehicle with complaints of cd Worsening Back Pain. 20:05 The patient is a 71 yo female with a recent history of Osteomyelitis of the Spine cd diagnosed in early January. She has been receiving Cefazolin 6 grams IVPB qday through her PICC Line for the past 9 weeks. She has had increased shooting pain going up her spine into her neck, especially with movement. No high fever or chills. She had mild upper abdominal / epigastric pain last night but no abdominal pain at this time. She denies Flu or URI symptoms. She has ling standing Urinary Frequency, but no other UTI symptoms. She denies areas of cellulitis or joint pain. She was seen by Home Health Care and the RN relayed her new symptoms to Dr. Mackey. A CBC revealed an elevated WBC with a left shift. 14.1 K with 74% Neutrophils and 5% bands. (on 03/27/2017 her WBC was normal at 8.1 . . Onset: The symptom(s)/episode began/occurred gradually, 2 day(s) ago. Severity of symptoms: At their worst the symptoms were moderate in the emergency department the symptoms are unchanged. The patient's CRP went from 11.1 on 03/27/2017 to 709.0 today 04/03/2017. Her Alk Phos. is rising from 272 on 03/27 to 404 today and her AST has risen from 34 on 03/27/2017 to 482 today. Her Total Bili has risen from 0.[address] on 03/27/[address] Mackey was concerned that her Spinal Osteomyelitis was worsening and wanted the patient transferred to [facility] where her Infectious Disease Specialists and Spine Surgeons work.. Historical: - Allergies: Compazine; PENICILLINS; - Home Meds: 1. Imodium Oral 2. potassium bicarb & chloride 25 mEq oral tbef 1 tab 2 times per day 3. hydrocortisone 10 mg oral tab 1 tab 2 times per day with food 4. Synthroid 125 mcg oral tab 1 tab once daily 5. montelukast 10 mg oral tab 1 tab once daily 6. budesonide oral 0.5 MG once daily 7. Pepcid 20 mg oral tab 1 tab 3 times per day 8. Furosemide Oral once daily 9. cefazolin 10. fexofenadine 180 mg oral tab 1 tab once daily 11. saccharin sodium oral 12. gabapentin 300 mg oral cap 1 cap 3 times per day 13. Oxycodone-Acetaminophen Oral 14. oxycotin 20 mg 1 tablet Q12H - PMHx: Osteomyelitis (March 08, 2017); DEPRESSION; DIARRHEA; HYPOXEMIA; OSTEOPOROSIS; FIBROMYALGIA; OSTEOMYELITIS OF SPINE; SLEEP APNEA; AUTOIMMUNE DISORDER; HIGH CHOLESTEROL; HYPERLIPIDEMIA; HASHIMOTOS; - PSHx: TUBAL LIGATION; TONSILLECTOMY; ; - Tetanus: < 10 years. - Ebola Screening: : Patient negative for fever greater than or equal to 101.5 degrees Fahrenheit, and additional compatible Ebola Virus Disease symptoms. - Immunization history: Flu Vaccine < 1 year. - Social history: Smoking status: Patient states was never smoker of tobacco. ROS: 20:05 Constitutional: Positive for body aches, malaise, poor PO intake, Negative for chills, cd fever. 20:05 Cardiovascular: Negative for chest pain, palpitations. 20:05 Respiratory: Negative for cough, pleurisy, shortness of breath. 20:05 Abdomen/GI: Positive for abdominal pain, nausea, anorexia, of the epigastric area, last night. 20:05 Back: Positive for decreased range of motion, pain at rest, pain with movement, of the thoracic area and lumbar area, Negative for radiated pain. 20:05 : Positive for urinary frequency, Negative for pelvic pain, flank pain, burning with urination, foul smelling urine. 20:05 MS/extremity: Negative for acute changes. 20:05 Skin: Negative for acute changes. 20:05 Neuro: Negative for altered mental status, acute changes. 20:05 All other systems are negative. Exam: 20:05 Constitutional: The patient appears alert, awake, non-diaphoretic, non-toxic, well cd developed, well nourished, obese. 20:05 ENT: Exam is negative for acute changes. 20:05 Neck: C-spine: vertebral tenderness, that is mild, ROM/movement: pain, that is mild. 20:05 Cardiovascular: Rate: normal, Rhythm: regular, Pulses: no pulse deficits are appreciated, Heart sounds: normal, Edema: is not appreciated. 20:05 Respiratory: the patient does not display signs of respiratory distress, Respirations: normal, no acute changes, Breath sounds: are normal, clear throughout. 20:05 Abdomen/GI: Inspection: abdomen appears normal, Bowel sounds: normal, Palpation: abdomen is soft and non-tender, Rectal exam: the exam is deferred, Indicators: Davis's sign is negative. 20:05 Back: pain, that is moderate, of the thoracic area and lumbar area, ROM is painful, with all movement, CVA tenderness, is absent, vertebral tenderness. 20:05 Musculoskeletal/extremity: Exam is negative for acute changes. 20:05 Skin: Exam negative for acute changes. 20:05 Neuro: Exam negative for acute changes. Vital Signs: 20:21 BP 137 / 76; Pulse 91; Resp 18; Temp 98.7(O); Pulse Ox 91% on R/A; Weight 83.91 kg; rh Height 5 ft. 2 in. (157.48 cm); Pain 7/10; 20:47 BP 112 / 57; Pulse 92; Pulse Ox 91% on R/A; em1 20:21 Body Mass Index 33.84 (83.91 kg, 157.48 cm) rh Nathaniel Coma Score: 20:05 Eye Response: spontaneous(4). Verbal Response: oriented(5). Motor Response: obeys cd commands(6). Total: 15. MDM: 20:10 Data interpreted: Pulse oximetry: on room air is 91 %. Interpretation: normal. cd 20:25 Patient medically screened. cd 20:30 Physician consultation: Marlene Dacosta MD was called at 20:20, was contacted at 20:25, cd regarding admission, to the floor, consult, patient's condition, need to evaluate the patient as soon as possible, and will see patient in inpatient room, shortly, later today, after a discussion of the case, a recommendation for transfer for higher level of care is made. 20:45 Differential Diagnosis sepsis, flu, UTI, GB Disease, Worsening Osteomyelitis. Data cd reviewed: vital signs, nurses notes, old medical records, lab test result(s), radiologic studies, plain films, and as a result, I will *Transfer Patient. 21:05 Counseling: I had a detailed discussion with the patient and/or guardian regarding: the cd historical points, exam findings, and any diagnostic results supporting the discharge/admit diagnosis, lab results, radiology results, the need to transfer to another facility, for higher level of care, [facility] not immediately have the required specialist. 04/03 21:02 Order name: INFLUENZA A/B; Complete Time: 21:19 EDTN 04/03 21:19 Interpretation: Normal. 04/03 21:08 Order name: URINE MICROSCOPIC EDTN 04/03 21:19 Interpretation: Normal Except: URINE WBC NONE SEEN; URINE BACTERIA 10-20 ORGANISMS/hpf. 04/04 07:27 Order name: URINE CULTURE EDTN 04/03 20:48 Order name: CHEST; [place] [id number] EDTN 04/04 10:42 Order name: CHEST; [place] [id number] EDTN 04/03 20:49 Order name: Oxygen; Complete Time: 20:49 rh 04/03 20:49 Order name: Pulse Ox Continuous; Complete Time: 20:49 rh Dispensed Medications: No medications were administered Signatures: Juan Meza MD MD Deepika Patel
--- NOTE | 2017-04-03 21:10 | ER NURSING DOCUMENTATION ---
Nurse's Notes [facility] Name:Carin Smith Age:71 yrs Sex:Female :1945 Arrival Date:04/03/2017 Time:20:04 Bed3 Private MD:Lissa Mackey Diagnosis:Osteomyelitis-of Spine Presentation: 04/03 20:05 Acuity: MARICRUZ 2 rh 20:05 Transition of care: Home. rh 20:05 Method Of Arrival: Private Vehicle rh 20:05 Presenting complaint: Patient states: Osteomyelitis of the spine, pt had labs done rh today which have gotten worse. C reactive protein is elevated. Dr Mackey called and requested that the patient be seen in the ED and then transferred to [facility] where the bulk of her physicians are located in order to received antibiotics and further workup. Triage Assessment: 20:20 General: Appears in no apparent distress, Behavior is cooperative. Pain: Complains of rh pain in back. EENT: Oral mucosa is dry. Neuro: Level of Consciousness is awake, alert, obeys commands, Oriented to person, place, time, event. Cardiovascular: Capillary refill < 3 seconds Chest pain is denied. Respiratory: Airway is patent Respiratory effort is even, unlabored. GI: Abdomen is obese, Denies diarrhea, nausea, vomiting. : No deficits noted. : Derm: Skin is intact, is healthy with good turgor, Skin is pink, warm & dry. Musculoskeletal: Circulation, motion, and sensation intact Range of motion intact in all extremities. Historical: - Allergies: Compazine; PENICILLINS; - Home Meds: 1. Imodium Oral 2. potassium bicarb & chloride 25 mEq oral tbef 1 tab 2 times per day 3. hydrocortisone 10 mg oral tab 1 tab 2 times per day with food 4. Synthroid 125 mcg oral tab 1 tab once daily 5. montelukast 10 mg oral tab 1 tab once daily 6. budesonide oral 0.5 MG once daily 7. Pepcid 20 mg oral tab 1 tab 3 times per day 8. Furosemide Oral once daily 9. cefazolin 10. fexofenadine 180 mg oral tab 1 tab once daily 11. saccharin sodium oral 12. gabapentin 300 mg oral cap 1 cap 3 times per day 13. Oxycodone-Acetaminophen Oral 14. oxycotin 20 mg 1 tablet Q12H - PMHx: Osteomyelitis (March 08, 2017); DEPRESSION; DIARRHEA; HYPOXEMIA; OSTEOPOROSIS; FIBROMYALGIA; OSTEOMYELITIS OF SPINE; SLEEP APNEA; AUTOIMMUNE DISORDER; HIGH CHOLESTEROL; HYPERLIPIDEMIA; HASHIMOTOS; - PSHx: TUBAL LIGATION; TONSILLECTOMY; ; - Tetanus: < 10 years. - Ebola Screening: : Patient negative for fever greater than or equal to 101.5 degrees Fahrenheit, and additional compatible Ebola Virus Disease symptoms. - Immunization history: Flu Vaccine < 1 year. - Social history: Smoking status: Patient states was never smoker of tobacco. Screenin:22 Infectious Disease Risk None. Abuse screen: Denies threats or abuse. Denies injuries rh from another. Nutritional screening: No deficits noted. Assessment: 20:22 See Triage Assessment done by same RN. rh Vital Signs: 20:21 BP 137 / 76; Pulse 91; Resp 18; Temp 98.7(O); Pulse Ox 91% on R/A; Weight 83.91 kg; rh Height 5 ft. 2 in. (157.48 cm); Pain 7/10; 20:47 BP 112 / 57; Pulse 92; Pulse Ox 91% on R/A; em1 20:21 Body Mass Index 33.84 (83.91 kg, 157.48 cm) rh [place] Coma Score: 20:05 Eye Response: spontaneous(4). Verbal Response: oriented(5). Motor Response: obeys cd commands(6). Total: 15. ED Course: 20:04 Patient arrived in ED. em2 20:04 Lissa Mackey MD is Private Physician. em2 20:05 Deepika Patel is Primary Nurse. rh 20:05 Triage completed. rh 20:05 Notified ED Physician of patient's arrival and chief complaint. Dr. Meza notified. rh 20:20 Maintain field IV. PT HAS PICC LINE IN THE LEFT FOREARM, SITE IS INTACT, NO REDNESS . rh 20:22 Valuables Remains with patient Patient has correct armband on for positive rh identification. Bed in low position. Call light in reach. Side rails up X 1. 20:25 Juan Meza MD is Attending Physician. cd 20:26 Port Xray Completed. aris 20:40 Urine collected. Clean catch specimen. em1 20:48 CHEST; SINGLE VIEW [id number] In Process Unspecified. EDMS 20:48 Oxygen Oxygen administration via nasal cannula @ 1L/min. rh 20:49 Pulse ox on. rh Administered Medications: No medications were administered Outcome: 20:57 ER care complete, transfer ordered by . kehinde 21:08 Transferred: Patient will be transferred to: [facility]. Facility rh Acceptance Time: April 03, 2017 at 20:35 Patient's face sheet was faxed to accepting facility. Face Sheet included patient's name, address, age, gender, contact information and insurance information. Patient will be transported by: [facility] ground. Report called to: SYED Hodge RN [id number] Nurse and Physician Charting and Notes were sent to Accepting Facility. All tests and/or procedures with results, if applicable, were sent to accepting facility. 21:08 Condition: stable 21:08 Discharge Assessment: Patient awake, alert and oriented x 3. No cognitive and/or functional deficits noted. Patient verbalized understanding of disposition instructions. 21:08 Discharge instructions given to patient, Instructed on need for transfer 21:09 Patient left the ED. Signatures: Dispatcher [employer] EDJuan Rangel MD MD cd Abbott, Macey hurst [employer], [employer] em1 [place]-reg, [place]-reg em2 Deepika Patel
[2017-04-03 22:48] LABS: URINE RBC 0-5/hpf (0-5/hpf)
--- NOTE | 2017-04-04 07:31 | RADIOLOGY REPORT ---
A limited single portable view of the chest is compared with prior films dated . The heart and vessels are stable and unremarkable. The left lung field is clear. There has been development of a small amount of fluid blunting the right costophrenic angle. The lung escobar are otherwise clear. IMPRESSION: Development of a small amount of fluid blunting the right costophrenic angle. MTDD
== END 2017-04-03 21:10 | disposition short-term general hospital (02) ==
LOC: ER 20:04
DX: M46.20 Osteomyelitis of vertebra, site unspecified (principal); M54.6 Pain in thoracic spine; M54.5 Low back pain; R35.0 Frequency of micturition; R82.99 Other abnormal findings in urine; Z79.899 Other long term (current) drug therapy; E06.3 Autoimmune thyroiditis; Z74.3 Need for continuous supervision; Z99.81 Dependence on supplemental oxygen
CPT/HCPCS: 71010; 81015; 87086; 87449; 99285; A0425; A0429